=== PATIENT | female | born 1955 | race Caucasian/White ===

== ENCOUNTER 2016-11-12 04:03 | Inpatient (IN) | payer MEDICARE, OTHER ==
[2016-11-12] VITALS (17 sets, daily range): BP systolic 124–184; BP diastolic 73–114; PULSE 76–107; RESP 15–22; O2SAT 92–99
[~2016-11-12] VITALS: Ht 165.1 cm; Wt 83.3 kg
--- NOTE | 2016-11-12 04:15 | ED.REPORT ---
HPI-Hip/Pelvis Prob/Inj Date of Service Nov 12, 2016 ED Provider: Dr. Isabel Pt is a 61 year old female with a hx of bilateral hip replacements, a redo on the left, and previous hip dislocations presenting to the ED via EMS complaining of left hip pain onset just prior to arrival as she was rolling off the couch. There is no other trauma no impact trauma. She reports that she drank EtOH after she injured herself tonight. Denies fever, chills, nausea, vomiting, SOB or wheezing. Nursing Notes Stated Complaint: L HIP PAIN Chief Complaint: Extremity Trauma Nursing Notes Reviewed: Yes Allergies: Coded Allergies: No Known Allergies (Unverified , 11/12/16) General Time Seen by Provider: 04:15 Chief Complaint Hip dislocation left Hx Obtained From: Patient, EMS Arrived By: Ambulance Onset Occurred: Just prior to arrival Context of Onset: EtOH use Symptom Duration: Since onset Progression Since Onset: Constant Quality: Painful Severity: Current: Severe Severity: Maximum: Severe Recent Healthcare: No recent doctor visit, No recent hospitalization Similar Sx Previous: Yes Past Medical History Past Medical History Hx of hip dislocations Pt reports that she was in the ICU in a coma for 42 days due to sepsis in the past Past Surgical History Bilateral hip replacements Several abdominal surgeries while in the ICU Smoking History Unknown if Ever Smoker Ambulatory Status Independent Review of Systems Constitutional: Denies: Chills, Fever Musculoskeletal: Reports: Joint pain, Joint swelling Complete sys rev & neg: except as marked. Respiratory: Denies: Shortness of breath, Wheezing GI: Denies: Nausea, Vomiting Physical Exam Initial Vital Signs Vital Signs (First) Date Time Temp Pulse Resp B/P Pulse Ox O2 Delivery O2 Flow Rate FiO2 11/12/16 04:04 107 21 165/112 94 Room Air Initial VS: Reviewed Head / Eyes: Atraumatic, Normocephalic, PERRL Neck: Supple, Non-tender, Full range of motion Respiratory: Breath sounds normal, Clear to auscultation, No respiratory distress Cardiovascular: Regular rate & rhythm, Heart sounds normal, Intact distal pulses Upper Extremities: Vascular intact, Neuro intact, No swelling, No tenderness Skin: Warm, Dry, No cyanosis Neurologic: Alert, Oriented, Nonfocal Psychiatric: Mood/affect normal, Behavior normal, Normal thought content Lower Extremity / Pelvis / MS: No deformity, Neurologic intact, Vascular intact Left hip dislocation General/Constitutional: Awake, Alert Mild odor of alcohol Abdomen: Atraumatic, Soft, Non-tender Scarred ENT: Atraumatic, Airway patent, Mucous membranes moist, Pharynx NL Mallampati 1 pharynx Interpretation & Diagnostics Lab Results Interpretation Result Diagram: 11/12/16 0505 11/12/16 0505 Test 11/12/16 05:05 White Blood Count 7.3th/mm3 (3.8-10.1) Red Blood Count 4.02mil/mm3 (3.90-5.20) Hemoglobin 11.7g/dL (12.0-15.6) Hematocrit 35.2% (35.0-46.0) Mean Corpuscular Volume 87.6fL (81-100) Mean Corpuscular Hemoglobin 29.1pg (27.0-35.0) Mean Corpuscular Hemoglobin Concent 33.2% (32.0-37.0) Red Cell Distribution Width 17.0% (12.3-15.4) Platelet Count 364bil/L (150-400) Neutrophils (%) (Auto) 66.6% (40-74) Lymphocytes (%) (Auto) 22.5% (14-46) Monocytes (%) (Auto) 7.8% (4-12) Eosinophils (%) (Auto) 2.5% (0-5) Basophils (%) (Auto) 0.5% (0-3) Sodium Level 140mEq/L (134-144) Potassium Level 4.3mEq/L (3.5-5.2) Chloride Level 100mEq/L (97-108) Carbon Dioxide Level 23mmol/L (18-29) Blood Urea Nitrogen 9mg/dL (8-27) Creatinine 0.48mg/dL (0.57-1.00) Estimat Glomerular Filtration Rate 189mL/min (>59) Glucose Level 91mg/dL (60-99) Calcium Level 8.4mg/dL (8.5-10.1) Total Bilirubin 0.2mg/dL (0.0-1.2) Aspartate Amino Transf (AST/SGOT) 46U/L (0-50) Alanine Aminotransferase (ALT/SGPT) 24U/L (0-32) Alkaline Phosphatase 134U/L (25-165) Total Protein 6.6g/dL (6.4-8.4) Albumin 3.8g/dL (3.4-5.0) Alcohols 77mg/dL (0-10) X-Ray Interpretation Xray Interpretation: Dislocated left hip. XRAY POST REDUCTION: Unchanged. Dislocation not reduced. Interpretation / Wet Read by: Wet read ED physician Procedures Proced Mod Sedation/Analgesia 200 Propofol Time: :31 Procedure Performed by: ED physician Sedation Time: 10 - 15 min Consent / Setup: Informed consent provided, Time-out performed, Hand hygiene observed, Stand sterile technique, Position supine Indication: Hip reduction Preparation: court monitor applied, Pulse oximeter applied, Constant attendance, IV access established, Eval last meal time, Supplemental oxygen, Procedure explained, Suction available, End tidal CO2 mon applied VS Prior to Procedure: All vital signs normal Mallampati: Class & Anatomy: 1 tonsils/uvula/s palate Airway Exam: Normal facial anatomy CVS/Resp Exam: Normal breath sounds Neuro Exam: Alert Sedation: Sedation: Propofol ASA Classification: 1 normal healthy patient Response During Procedure: Handled secretions adeq, Maintained airway well, Oxygenation stable, Sedation appropriate, Vital signs stable Complications During/After: None Reversal: None required Mental Status After Procedure: Alert Attestation: I performed procedure, I performed sedation Reduction Post Dislocation Hip 200 total Propofol given Time: : Procedure Performed by: ED physician Consent / Timeout / Setup: Informed consent provided, Time-out performed, Oxygen administered, Pulse oximeter applied, court monitor applied, Hand hygiene observed, Stand sterile technique Procedural Sedation/Analgesia: Sedation: Propofol Which Hip and Technique: Left hip Neurovascular: Intact pre-procedure, Intact post-procedure Post-Procedure / Complications: Not reduced per exam, X-ray disloc not reduced , Condition improved, Tolerated procedure well, Patient stable Re-Eval/Medical Decision Med Decision/Clinical Course Multiple efforts to reduce this hip were unavailable. Discussed with orthopedics who will admit him to the operating room. Orientation of her left acetabular cup appears to be fairly posterior, and appears to be engaged with the inferior margin of the femoral part of the prosthesis. No significant change in position after flexion rotation and traction applied. Recovered without incident from sedation and is transported now in stable condition. Re-Evaluation/Progress #1: Time of Eval: 04:19 Patient Status: Condition improved Re-Evaluation/Progress Note: Discussed plan for dislocation reduction. Pt understands and agrees. She states that she last ate at 1500 today. Re-Evaluation/Progress #2: Time of Eval: 04:31 Patient Status: Condition improved Re-Evaluation/Progress Note: Performed hip dislocation reduction. Procedure unsucessful. Re-Evaluation/Progress #3: Time of Eval: 05:00 Patient Status: Condition improved Re-Evaluation/Progress Note: Discussed plan for admission. Pt understands and agrees with plan. Consultation #1: Referral / Consult Name: Ranulfo Rodriguez MD Consulted With: Orthopedic Call Returned at: 04:56 Note: Admit the pt to the hospitalist and she will see her in the morning. Consultation #2: Referral / Consult Name: Anand Marquez MD Consulted With: Hospitalist Call Returned at: 05:05 Curb Hop: Will see patient, Agrees with plan, Accepts admit Counseled Regarding: Diagnosis, Lab results, Need for admission Discharge & Departure Impression: Primary Impression: Recurrent dislocation, left hip Disposition: ADMITTED TO HOSPITAL Discharge Condition All VS Reviewed: Yes Condition: Improved Referrals: Ranulfo Rodriguez MD Attestation Portions of this note were transcribed by Kamryn Stoll. I, Dr. Isabel personally performed the history, physical exam and medical decision-making; I reviewed and confirmed the accuracy of the information in the transcribed note. Signed by: Freddy Gustafson, 11/12/2016. copies to: Ranulfo Rodriguez MD, Christopher W MD Nov 12, 2016 04:14 KAMRYN STOLL Nov 12, 2016 04:20
[2016-11-12] MEDS ORDERED: Propofol 10 mg/mL 20 mL Inj IVPUSH ONE (04:20)
[2016-11-12] MEDS ORDERED: fentaNYL-PF 50 mCg/mL 2 mL Inj IVPUSH ONE (04:20)
[2016-11-12] MEDS ORDERED: Lactated Ringer's 1,000 ML IV SCH ×2 (05:19→10:45)
[2016-11-12] MEDS ORDERED: fentaNYL PCA 10 mCg/mL 30 mL Inj IV PRN (05:25)
[2016-11-12 05:36] LABS: BASOPHILS % (AUTO) 0.5 % (0-3); EOSINOPHILS % (AUTO) 2.5 % (0-5); MONOCYTES % (AUTO) 7.8 % (4-12); Mean Corpuscular Hemoglobin 29.1 pg (27.0-35.0); Mean Corpuscular Volume 87.6 fL (81-100); NEUTROPHILS % (AUTO) 66.6 % (40-74); Platelet Count 364 bil/L (150-400)
[2016-11-12] MEDS ORDERED: 0.9% Sodium Chloride 1,000 ML IV SCH (07:05)
[2016-11-12] MEDS ORDERED: PANT40TA3 PO (07:37)
[2016-11-12] MEDS ORDERED: OMEG-38 PO (07:38)
[2016-11-12] MEDS ORDERED: BUSP15TA3 PO (07:47)
[2016-11-12] MEDS ORDERED: BUPR150T12 PO ×2 (07:47→07:51)
[2016-11-12] MEDS ORDERED: QUET50TA55 PO (07:52)
--- NOTE | 2016-11-12 07:52 | NUR ---
Admit to floor @ 0550 from ED. Arrived via stretcher in a great deal of pain and in tears. VSS, placed NPO for morning surgery. plan for T.F [address] Rodriguez (consulting). TEXTILE SCREEN PRINTER initiated and bolus dose given. Patient states little relief. Oncoming RN Jami consulting with morning hospitalist for improved pain control. Admit deferred to next shift. No arm band on arrival - new one printed.
[2016-11-12] MEDS ORDERED: HYDROmorphone 0.5 mg/0.5 mL iSecure Syringe IVPUSH ONE (07:55)
[2016-11-12] MEDS ORDERED: LAMO100T2 PO ×2 (07:55→08:40)
[2016-11-12] MEDS ORDERED: FENTANYL PCA IV PRN (07:55)
[2016-11-12] MEDS ORDERED: ESCI5SOL4 PO (07:56)
[2016-11-12] MEDS ORDERED: ESTR2TAB2 PO (07:57)
[2016-11-12] MEDS ORDERED: MULT-444 PO (08:00)
[2016-11-12] MEDS ORDERED: ZINC50TA4 PO (08:01)
[2016-11-12] MEDS ORDERED: ASCO500C6 PO (08:01)
[2016-11-12] MEDS ORDERED: CA/D1TAB7 PO (08:02)
[2016-11-12] MEDS ORDERED: GABA-502 PO ×2 (08:06)
[2016-11-12] MEDS ORDERED: ESCI20TA38 PO (08:09)
--- NOTE | 2016-11-12 08:30 | NUR ---
Pain Per pt pain uncontrolled with Fentanyl FASHION ILLUSTRATOR. Pt rolling around nonstop restlessness, diaphoretic and moaning r/t pain. Pt c/o cramping of dislocated leg although no tight muscles palpated. Pt continues to move around restless moaning. Fentanyl FASHION ILLUSTRATOR settings increased to opioid tolerant dose per MD. According to pt this was still not working. Small IV push dose of Dilaudid was ordered although after flushing pts IV to check for patency pt states that she was feeling better. Dilaudid IV Push dose was NOT given. Pt remains more comfortable at this time. Opioid Tolerant dose FASHION ILLUSTRATOR Fentanyl continues. Care continues
--- NOTE | 2016-11-12 08:51 | PCM.HPMED ---
Subjective Date of Service Nov 12, 2016 Primary Provider: Admitting Physician: Anand Marquez MD Primary Care Physician: Rory Attending Physician: Anand Marquez MD Chief Complaint: Left hip pain History of Present Illness: Patient with past medical history of depression, anxiety, chronic pain presented to the hospital with left hip pain. X-ray showed dislocation of her left hip. Attempt was made to reduce left hip dislocation in emergency department. It was not successful. Orthopedic surgeon was consulted. Patient is being admitted to the hospital for pain control and treatment of the dislocated hip in the OR. Patient is complaining of left hip pain. Out of 10, nonradiating, associated with some cramps, alleviated by IV opioids, exacerbated by movements. Patient is on SHOPPER with fentanyl. Review of Systems: REVIEW OF SYSTEMS: GENERAL: no malaise, no fevers., SEE HPI HEENT: Negative for frequent or significant headaches All other reviewed and negative other than HPI. Allergies Coded Allergies: No Known Allergies (Unverified , 11/12/16) PMH Social History Hx Alcohol Use: Yes (at my dad's house) Alcoholic Drinks Per Day: i am in revocery Hx Substance Use: No Hx Tobacco Use: No Smoking Status: Unknown if Ever Smoker Exam Vital Signs Vital Sign - Last Date Time Temp Pulse Resp B/P Pulse Ox O2 Delivery O2 Flow Rate FiO2 11/12/16 08:33 36.8 92 18 184/114 95 Room Air Intake and Output 11/11/16 11/11/16 11/12/16 Cumulative From/Thru 15:00 23:00 07:00 11/12/16 04:04 - 11/12/16 06:28 Intake Total 0 ml 0 ml Output Total 0 ml 0 ml Balance 0 ml 0 ml Intake Oral 0 ml 0 ml Output Urine Total 0 ml 0 ml # Bowel Movements 0 0 Exam GENERAL: Alert, moderate distress, in bed HEAD: atraumatic, normocephalic, no bruises. EYES: SUHAIL, EOMI, anicteric, able to fully open and close eyelids SKIN: Skin color normal, turgor normal. No visible rashes or lesions. EAR, NOSE, MOUTH, THROAT: Lips, oral mucosa, tongue gums, oropharynx are moist , pink, no lesions. Ears normal appearance, no lesions. NECK: no jugulovenous distention; supple ROM normal. RESPIRATORY: Lungs clear to auscultation. Good diaphragmatic excursion. CARDIAC: normal S1 and S2; no rubs, murmurs, or gallops; regular rate and rhythm ABDOMEN: Abdomen soft, non-tender. BS normal. No masses or organomegaly. MUSCULOSKELETAL: ROM limited in the left hip, muscles are not tender EXTREMITIES: no pitting edema in LE, no new deformities or skin discoloration. NEURO: Alert, oriented X 3, Sensation grossly intact., Cranial nerves II-XII intact, Grossly normal motor function. PULSES: 2+ radial, 2+ carotid Lab and Diagnostics Result Diagram: 11/12/1650411/12/16 0505 Assessment & Plan [id number] female presented to the hospital with dislocated left hip. Attempt was made in the emergency department to reduce it but was not successful. Orthopedic surgery was consulted, patient was admitted to the hospital. Dislocated left hip - IV opioids for pain control - Nothing by mouth for surgery - patient will be taking to OR today Anemia of chronic disease - Stable Depression, anxiety, chronic pain - Stable - Continue with home medication patient is able to take them Alcohol use - Monitor for now - Consider CIWA after the surgery DVT PROPHYLAXIS: Sequential compression devices Code status: Full code Labs, radiology tests reviewed. Plan of care, medication side effects, home medication, diagnostic procedures and available alternatives were discussed and reviewed with patient. All questions answered. Patient verbalized understanding, approved and agreed to plan of care. Portillo Nova MD Nov 12, 2016 08:51
--- NOTE | 2016-11-12 09:09 | DRSVH ---
PROCEDURE: X-RAY PELVIS, ONE OR TWO VIEWS ([id number]) INDICATIONS: LEFT HIP PAIN TECHNIQUE: 2 view(s) of the pelvis acquired. COMPARISON: [facility], , XR PELVIS W LATERAL HIP LT, 11/12/2016, 4:51. FINDINGS: Bones: Bilateral hip arthroplasties are present. There is superior, posterior dislocation of the left prosthetic femoral head in relation to the acetabulum. No visualized hardware or osseous fracture. Soft tissues: Visualized bowel gas pattern is normal. No suspicious soft tissue calcifications. IMPRESSION: Left hip arthroplasty dislocation without fracture as above. Dictated by: Gisela Alvarez M.D. on 11/12/2016 at 9:07 Approved by: Gisela Alvarez M.D. on 11/12/2016 at 9:08
--- NOTE | 2016-11-12 09:10 | DRSVH ---
PROCEDURE: X-RAY PELVIS W/LAT HIP (LT) ([id number]) INDICATIONS: dislocation of prosthetic hip TECHNIQUE: AP pelvis with lateral view(s) of the left hip(s). COMPARISON: [facility], , XR PELVIS 1 OR 2VW, 11/12/2016, 4:11. FINDINGS: Bones: Unchanged appearance of dislocated left hip arthroplasty. No visualized fracture. Soft tissues: The visualized bowel gas pattern is normal. No suspicious soft tissue calcifications. IMPRESSION: Unchanged appearance of left hip arthroplasty dislocation. Dictated by: Gisela Alvarez M.D. on 11/12/2016 at 9:08 Approved by: Gisela Alvarez M.D. on 11/12/2016 at 9:09
--- NOTE | 2016-11-12 09:37 | NUR ---
Too OR Pt leaves to OR via bed. IV SL.
--- NOTE | 2016-11-12 10:44 | PCM.HPANE ---
Patient Data Date of Service: Nov 12, 2016 (0945) Surgeon Admitting Provider:Anand Marquez MD Attending Provider:Anand Marquez MD Primary Care Physician:Rory Other Provider:HospitalistVamshi Team Reason for Visit Dislocated Prosthetic L Hip Ht/WT & BMI Height (Feet): 5 Height (Inches): 5.00 Weight (Kilograms): 83.300 Body Mass Index 30.60 Allergies Coded Allergies: Sulfa (Sulfonamide Antibiotics) (Verified Allergy, Mild, 11/12/16) per patient report GI upset long time ago. Past Anesthesia History Anesthesia History: Denies:: Abnormal Airway, Anesthesia Reactions, Difficult Intubation, Fam Anesthesia Reaction, Fam Malignant Hypertherm, Malignant Hyperthermia Diabetes History Hx Diabetes?: No MRSA MRSA: No Medications Home Meds Incl Beta Claudia: No Reported Medications Lamotrigine 100 Mg Tablet4.5 Tab PO HS Ref 0 11/12/16 Escitalopram Oxalate 20 Mg Jxdmli96 Mg PO DAILY 30 Days Ref 0 11/12/16 Gabapentin 300 Mg Capsule4 Capsule PO HS Ref 0 11/12/16 Gabapentin 300 Mg Capsule2 Capsule PO BID Ref 0 11/12/16 Ca/D3/Mag/Zinc/Terese/Kai/Mgbor (Caltrate 600+D3+Min Chew Tab)1 Each Tab.chew1 Each PO 11/12/16 Zinc Gluconate (Zinc)50 Mg Ynbnpl20 Mg PO 11/12/16 Ascorbic Acid (Vitamin C)500 Mg Capsule.er500 Mg PO 11/12/16 FA/Mv,Ca,Iron,Min/Lycopene/Lut (Centravites Tablet)1 Each Tablet1 Each PO 11/12/16 Estradiol 2 Mg Tablet2 Mg PO MORNING Ref 0 11/12/16 Quetiapine Fumarate 50 Mg Vzxclv95 Mg PO HS Ref 0 11/12/16 Bupropion ER 150 Mg Tablet.er3 Tab PO DAILY Ref 0 11/12/16 Buspirone 15 Mg Keyppu80 Mg PO TID Ref 0 11/12/16 Enloe-3/Dha/Epa/Fish Oil (Fish Oil 1,000 mg Softgel)1 Each Capsule1 Each PO QID 11/12/[address] 40 Mg Tablet.dr40 Mg PO BID Ref 0 11/12/16 Discontinued Reported Medications Escitalopram Oxalate 5 Mg/5 Ml Dadmvamx56 Mg PO DAILY #1 BOTTLE Ref 0 11/12/16 Lamotrigine 100 Mg Tablet4 Tab PO HS Ref 0 11/12/16 Bupropion ER 150 Mg Tablet.er150 Mg PO BID Ref 0 11/12/16 History History of ENT Problems?: No HEENT History: Denies:: Abnormal Airway Cataracts Difficult Intubation Dysphagia Glaucoma Hearing Problem Sinus Problem TMJ Denture Type: None Teeth Condition: Within Normal Limits Hx of Heart Problems?: No Cardiovascular History: Positive for:: Hypertension Denies:: AICD Abdominal Aortic Aneurism Atrial Fibrillation Cardiac Surgery Chest Pain Congestive Heart Failure Coronary Artery Disease Edema Heart Murmur Irregular Heartbeat Pacemaker Peripheral Vascular Rheumatic Fever Thrombophlebitis Valvular Heart Disease Hx of Respiratory Problem?: No Respiratory History: Denies:: Asthma COPD Chest Surgery Cough Dyspnea Emphysema Hemoptysis Oxygen Administration Pneumonia Pulmonary Embolism Tuberculosis Use of C-PAP Machine Use of Inhalers / NEBS Hx Neurologic Problems?: No Neurological History: Denies:: Alzheimer's Disease CVA Dementia Dizziness Headaches Parkinson's Disease Seizures Hx of GI Problems?: Yes Other GI Pertinent History: one bleeding ulcer 6 month ago Hx of Problems?: No Genitourinary History: Positive for:: Urinary Tract Infection Denies:: HX of Hemodialysis Kidney Stones HX of Peritoneal Dialysis: No Female Hx: Denies:: Currently Other Skin Pertinent History: on stomach skin abrasions Hx Musculoskeletal Problems?: No Musculoskeletal History: Denies:: Back Injury Joint Replacement (both replaced ) Musculoskeletal Trauma Hx of Psycho/Social Problems?: Yes Psycho Social History: Positive for:: Anxiety (couple anxiety attacks) Bipolar Disorder Hx Depression Denies:: Suicide Attempt Hx Surgeries?: Yes (Sepsis with abdominal skin removal ) Hx Any Other Health Problems?: No Other History: Positive for:: Hospitalization Denies:: Cancer Thyroid Disease History Blood Transfusions: Positive for:: Accept Blood Products? Blood Transfusions (6 monts ago) Denies:: Blood Transfuse Reaction Hx Diabetes: No Hx Alcohol Use: Yes (at my dad's house)Alcoholic Drinks Per Day: i am in revoceryHx Substance Use: No Smoking Status: Unknown if Ever Smoker Have You Smoked inLast 12 mo: No Stop/Bang Treated for Sleep Apnea?: No Do You Have a CPAP Machine?: No S-Snoring: Do You Snore Loudly: No T-Tired: feel tired, fatigued: Yes O-Obsered: Observed not breath: No P-Blood Pressure: treated: No B- Body Mass Index > 35 kg/m2: No A- Age over 50: Yes N- Neck Large Circumference: No G- Gender Male: No KONG Total Score: 1 Risk Assessment Category Category 1A: Patient has history of documented sleep apnea, and HAS NOT received any narcotic, sedative or anesthesia administration during this stay. Category 1B: Patient has history of documented sleep apnea, and HAS received any narcotic , sedative or anesthesia administration during this stay Category 2: Patient has SUSPECTED Obstructive Sleep Apnea, and HAS received any narcotic , sedative or anesthesia administration during this stay. Category 3: Patient has SUSPECTED Obstructive Sleep Apnea and HAS NOT received narcotic, sedative or anesthesia administration during this stay. Category 4: Outpatient in Procedural Areas with known sleep apnea or who screen positive for High Risk via the STOP/BANG questionnaire. Exam Exam Vital Signs Vital Signs Date Time Temp Pulse Resp B/P Pulse Ox O2 Delivery O2 Flow Rate FiO2 11/12/16 09:03 87 18 174/78 95 Room Air 11/12/16 08:33 36.8 92 18 184/114 95 Room Air 11/12/16 06:30 22 11/12/16 06:00 36.8 89 18 159/88 92 Room Air 11/12/16 05:32 36.7 99 20 131/85 99 Room Air 11/12/16 04:04 107 21 165/112 94 Room Air General Appearance: Alert, Oriented X3, Cooperative, No Acute Distress HEENT/AIRWAY: MP 2 Lungs: Clear to Auscultation Heart: Exam Unremarkable Meds/Labs/Diagnostics Admission Meds Current Medications Fentanyl Citrate (Sublimaze Inj) 200 mcg ONCE ONCE IVPUSH Last administered on 11/12/16 05:07; Start 11/12/16 at 04:20; Stop 11/12/16 at 04:21; Status DC Propofol 40 mg 40 mg ONCE ONCE IVPUSH Last administered on 11/12/16 05:07; Start 11/12/16 at 04:20; Stop 11/12/16 at 04:21; Status DC Lactated Ringer's 1,000 ml @ 100 mls/hr Q10H IV Last administered on 11/12/16 09:30; Start 11/12/16 at 05:19; Stop 11/12/16 at 07:02; Status DC Sodium Chloride (Normal Saline) 1,000 ml @ 100 mls/hr Q10H IV Last administered on 11/12/16t 07:51; Start 11/12/16 at 07:05 Labs Test 11/12/16 05:05 White Blood Count 7.3th/mm3 (3.8-10.1) Red Blood Count 4.02mil/mm3 (3.90-5.20) Hemoglobin 11.7g/dL (12.0-15.6) Hematocrit 35.2% (35.0-46.0) Mean Corpuscular Volume 87.6fL (81-100) Mean Corpuscular Hemoglobin 29.1pg (27.0-35.0) Mean Corpuscular Hemoglobin Concent 33.2% (32.0-37.0) Red Cell Distribution Width 17.0% (12.3-15.4) Platelet Count 364bil/L (150-400) Neutrophils (%) (Auto) 66.6% (40-74) Lymphocytes (%) (Auto) 22.5% (14-46) Monocytes (%) (Auto) 7.8% (4-12) Eosinophils (%) (Auto) 2.5% (0-5) Basophils (%) (Auto) 0.5% (0-3) Sodium Level 140mEq/L (134-144) Potassium Level 4.3mEq/L (3.5-5.2) Chloride Level 100mEq/L (97-108) Carbon Dioxide Level 23mmol/L (18-29) Blood Urea Nitrogen 9mg/dL (8-27) Creatinine 0.48mg/dL (0.57-1.00) Estimat Glomerular Filtration Rate 189mL/min (>59) Glucose Level 91mg/dL (60-99) Calcium Level 8.4mg/dL (8.5-10.1) Total Bilirubin 0.2mg/dL (0.0-1.2) Aspartate Amino Transf (AST/SGOT) 46U/L (0-50) Alanine Aminotransferase (ALT/SGPT) 24U/L (0-32) Alkaline Phosphatase 134U/L (25-165) Total Protein 6.6g/dL (6.4-8.4) Albumin 3.8g/dL (3.4-5.0) Alcohols 77mg/dL (0-10) Plan Impression Patient chart reviewed, patient interviewed and anesthestic plan with risks, benefits, and alternatives discussed, and informed consent obtained. ASA Physical Status: ASA3 Severe Disease Anesthetic Plan: GA Bene/Risks/Altern/Consents: Yes HP Complete Prior to Induction: Yes Nasir Lr MD Nov 12, 2016 10:44
[2016-11-12] MEDS ORDERED: Dexamethasone 4 mg/mL Inj IVPUSH PRN (10:45)
[2016-11-12] MEDS ORDERED: Lactated Ringer's 500 ML IV PRN (10:45)
[2016-11-12] MEDS ORDERED: EPHEDrine Sulfate 50 mg/mL Inj IVPUSH PRN (10:45)
[2016-11-12] MEDS ORDERED: Ondansetron 2 mg/mL 2 mL Inj IVPUSH PRN (10:45)
[2016-11-12] MEDS ORDERED: MetoCLOpramide 5 mg/mL 2 mL Inj IVPUSH PRN (10:45)
[2016-11-12] MEDS ORDERED: Phenylephrine 10,000 mCg/mL Inj IVPUSH PRN (10:45)
[2016-11-12] MEDS: fentaNYL-PF 50 mCg/mL 2 mL Inj IVPUSH PRN ×4 (11:17→11:48)
[2016-11-12] MEDS ORDERED: Polyethylene Glycol (PEG) 17 Gm Powder PO PRN (11:20)
[2016-11-12] MEDS ORDERED: Alum-Mag Hydrox-Simeth 30 mL Suspension PO PRN (11:20)
[2016-11-12] MEDS: HYDROmorphone 1 mg/mL Inj IVPUSH PRN ×2 (11:33→11:40)
--- NOTE | 2016-11-12 11:36 | PCM.ANEP1 ---
Post Anesthesia PACU Phase 1 Assessment Vital Signs Vital Signs Date Time Temp Pulse Resp B/P Pulse Ox O2 Delivery O2 Flow Rate FiO2 11/12/16 09:03 87 18 174/78 95 Room Air 11/12/16 08:33 36.8 92 18 184/114 95 Room Air 11/12/16 08:30 18 11/12/16 06:30 22 11/12/16 06:00 36.8 89 18 159/88 92 Room Air 11/12/16 05:32 36.7 99 20 131/85 99 Room Air 11/12/16 04:04 107 21 165/112 94 Room Air Anesthetic Administered: GA Level of Alertness: Awake, talking SMITH's with Equal Strength: Yes Pain: Yes (RN aware- 8 out of 10 ) Pain Scale Score: 8 Nausea or Vomiting: No CV Function & Hydration Stable: Yes Airway Device: Oxygen Delivery: Nasal Cannula Lungs: Clear to Auscultation Dermatome Level: Full Sensation PACU Phase 2 Assessment Complications: No Patient Instructions Provided: N/A Nasir Lr MD Nov 12, 2016 11:36
[2016-11-12] MEDS ORDERED: fentaNYL-PF 50 mCg/mL 2 mL Inj ONE ×2 (11:46→15:29)
[2016-11-12] MEDS ORDERED: HYDROmorphone 0.5 mg/0.5 mL iSecure Syringe IVPUSH PRN (11:55)
--- NOTE | 2016-11-12 12:31 | OP ---
[address] [address] OPERATIVE REPORT PATIENT: GREGG ECHEVERRIA : 1955 MR#: [id number] ADMIT: 11/12/2016 JOB ID: [id number] DATE OF SURGERY: 11/12/2016 SURGEON: Ranulfo Rodriguez MD QUALITY ASSURANCE LEAD: Akash Garcia PA-C PREOPERATIVE DIAGNOSIS(ES): Recurrent left total hip dislocation. POSTOPERATIVE DIAGNOSIS(ES): Recurrent left total hip dislocation. PROCEDURE: Attempted left total hip dislocation reduction. Reduction unsuccessful. Potential retroversion of the cup and/or potential soft tissue interposition. ANESTHESIA: General with muscle relaxation. ESTIMATED BLOOD LOSS: Not applicable. INDICATIONS: A 61-year-old female with recurrent left total hip dislocation. Initial procedure performed by Dr. Brumfield at [facility] in [place]. The patient underwent revision of left total hip just recently this year. She dislocated while visiting her father last night in [place]. The patient had been drinking at that time. PROCEDURE IN DETAIL: Under adequate general anesthetic with muscle relaxation, initial attempts were made to reduce the hip. In order to provide enough traction, we switched the patient to one of the fracture beds with a central post to be able to obtain enough traction. We had adequate help with retraction maneuvering and rotation and counter traction. I was able to maneuver the hip down to the level of the cup, but it kept impinging on the rim of the cup regardless of internal or external rotation. Rather than continue to manipulate the hip, I opted to abort the procedure. The patient remained neurovascularly intact. She was taken back off the fracture table and placed onto her hospital bed and taken to the recovery room. I contacted [facility] in [place]. They did contact Dr. Brumfield, and he has indicated he would accept the patient in transfer. I have called the digital coordinator and they will contact us back with information. They will probably transfer her to the emergency department there. We will arrange for copies of her x-rays and notes to be sent with the patient. The patient is aware of the transfer. cc: [facility] Orthopedics cc: Dr. Brumfield.
--- NOTE | 2016-11-12 12:42 | CONS ---
[address] [address] CONSULTATION REPORT PATIENT: GREGG ECHEVERRIA : 1955 MR#: [id number] ADMIT: 11/12/2016 JOB ID: [id number] ORTHOPEDIC CONSULTATION: DATE OF SERVICE: 11/12/2016 CHIEF COMPLAINT: A 61-year-old female who is status post a revision for dislocation for left total hip replacement by Dr. Brumfield at [facility] in [place] this past year. The patient was visiting her father last night and states that she got up from the bed and was on the couch and she stuck to the vinyl couch, twisted her leg and dislocated the hip. The ER physicians tried to reduce the hip under IV conscious sedation, but this was not able to be done and this was about five o'clock this morning. I was then contacted the patient was admitted to the hospitalist service, she was kept n.p.o. and she then planned for attempted reduction of the dislocation in the OR this morning. The patient indicates that she had a left total hip replacement approximately about seven months ago by Dr. Brumfield at [facility] in [place] and then evidently it dislocated and she needed revision. This was done some time a couple months after the revision, perhaps sometime in the spring. Dates are not totally available. The patient does have a history of alcohol abuse and states she goes to alcohol meetings daily but evidently was drinking last night at her father's last night when this occurred. She has been using a cane to ambulate. PAST MEDICAL HISTORY: Past medical history pertinent for chronic depression, anxiety, chronic pain issues with the left hip pain. The patient has had history of alcohol abuse. She was in recovery but evidently has still been intermittently drinking. Past medical history is also pertinent for history of bilateral total hip replacements and several abdominal surgeries with sepsis in the abdominal and pelvic area. ALLERGIES: Patient states no known allergies. MEDICATIONS: Patient states she is trying to get into a chronic pain management, but is not reporting that she is on any particular medication. REVIEW OF SYSTEMS: HEENT: No blurring of vision. No decreased hearing. Respiratory: No shortness of breath. Cardiovascular: No chest pain. GI: No nausea, vomiting. : No dysuria. Musculoskeletal: Pain in the left hip with obvious left total hip dislocation. PHYSICAL EXAMINATION: VITAL SIGNS: 165 cm female, 83.3 kg. Temperature is 36.8, pulse 92, respirations 18, blood pressure 184/114, pulse ox of 95. GENERAL: The patient is alert and oriented. EXTREMITIES: Left leg is shortened and internally rotated. She has a well-healed surgical scar, posterior lateral incision on the hip. Peripheral pulses are intact. Motor and sensory testing intact in the left lower extremity. X-RAYS: Show that she has a left total hip dislocation that appears to be posterolateral. This is also superior. The patient also has a non cemented right total hip that is in position. LABORATORY TESTING: Showed white count 7300, hematocrit 35.2, hemoglobin 11.7, platelet count 364,000, sodium 140, potassium 4.3, chloride 100, CO2 23, BUN 9, creatinine 0.48, calcium 8.4. Liver function tests within normal limits. Toxicology patient's alcohol level was 77 and elevated. IMPRESSION: 1. Recurrent left total hip dislocation. 2. Prior left total hip revision. PLAN: We will plan to take the patient to the operating room for attempted closed reduction of the dislocation. The patient is aware of the risk for damage to surrounding neurovascular structures, stretching on the sciatic nerve, possibly even potential for not being able to reduce the dislocation depending on scar tissue or soft tissue interposition, is also potential for fracture of the femur. Surgical consent has been signed. Will proceed with surgery this morning. I have also indicated to the patient that if I am not able to reduce the total hip dislocation that I would be contacting Dr. Brumfield or one of his associates at [facility] and that she would need to be transferred there for further definitive care. cc: [facility], Orthopedics
--- NOTE | 2016-11-12 13:40 | PCM.DIMED ---
Discharge Instructions Date of Service Nov 12, 2016 Dates of Hospitalization Nov 12, 2016 at 05:18 Discharge Diagnosis Discharge Diagnosis Dislocation of left hip(status post left hip arthroplasty) Medication Instructions Additional med instructions Patient is being transferred to another acute health care facility for further treatment/surgery. Diet Discharge Diet: Other (nothing by mouth for possible surgery) Portillo Nova MD Nov 12, 2016 13:40
--- NOTE | 2016-11-12 13:47 | PCM.DC.MED ---
Discharge Summary Date of Service Nov 12, 2016 Dates of Hospitalization Date of Hospital Admission Nov 12, 2016 at 05:18 Date of Discharge: Nov 12, 2016 Providers: Admitting Physician: Anand Marquez MD Primary Care Physician: Nopmanpreet Attending Physician: Anand Marquez MD Diagnosis at Time of Discharge Diagnosis at Time of Discharge Dislocation of left hip(status post left hip arthroplasty) Consultations Orthopedic surgery Procedures XRay, CTs & MRIs XR IMPRESSION: Unchanged appearance of left hip arthroplasty dislocation. Hospital Course Patient with past medical history of depression, anxiety, alcohol use, chronic pain presented to the hospital with left hip pain she developed after the fall. X-ray showed dislocation of her left hip. Attempt was made to reduce left hip dislocation in emergency department. It was not successful. Orthopedic surgeon was consulted. Pain was managed with Fentanyl via IT RECRUITER and later with IV Dilaudid prn. While in the hospital another attempt was made to reduce left hip dislocation by orthopedic surgeon in our which also was not successful. Orthopedic surgery recommendation patient was transferred to [facility] for further treatment/surgery. Plan of care and discharge was discussed with Ortho surgeon Dr. Rodriguez Physical exam: patient was seen and examined on the day of discharge Patient Condition @ Discharge: fair Discharge Disposition: [facility] During discharge patient was allert, oriented, able to make own informed decisions. We discussed plan of care and discharge. Patient verbalized understanding and agreed to current plan of care and discharge. TIME SPENT IN DISCHARGE ACTIVITY: Face to face activity greater then 30 minutes spent in discharge activity. 1. Discussed with patient re: discharge plan of care/treatment, and follow up care/services. 2. Patient agreed with discharge plan and further plan of care, all questions were answered/addressed, no further questions at the time of discharge. Exam Vital Signs (Last) Date Time Temp Pulse Resp B/P Pulse Ox O2 Delivery O2 Flow Rate FiO2 11/12/16 12:09 36.8 91 18 141/102 99 Nasal Cannula 3.00 Test 11/12/16 05:05 White Blood Count 7.3th/mm3 (3.8-10.1) Red Blood Count 4.02mil/mm3 (3.90-5.20) Hemoglobin 11.7g/dL (12.0-15.6) Hematocrit 35.2% (35.0-46.0) Mean Corpuscular Volume 87.6fL (81-100) Mean Corpuscular Hemoglobin 29.1pg (27.0-35.0) Mean Corpuscular Hemoglobin Concent 33.2% (32.0-37.0) Red Cell Distribution Width 17.0% (12.3-15.4) Platelet Count 364bil/L (150-400) Neutrophils (%) (Auto) 66.6% (40-74) Lymphocytes (%) (Auto) 22.5% (14-46) Monocytes (%) (Auto) 7.8% (4-12) Eosinophils (%) (Auto) 2.5% (0-5) Basophils (%) (Auto) 0.5% (0-3) Sodium Level 140mEq/L (134-144) Potassium Level 4.3mEq/L (3.5-5.2) Chloride Level 100mEq/L (97-108) Carbon Dioxide Level 23mmol/L (18-29) Blood Urea Nitrogen 9mg/dL (8-27) Creatinine 0.48mg/dL (0.57-1.00) Estimat Glomerular Filtration Rate 189mL/min (>59) Glucose Level 91mg/dL (60-99) Calcium Level 8.4mg/dL (8.5-10.1) Total Bilirubin 0.2mg/dL (0.0-1.2) Aspartate Amino Transf (AST/SGOT) 46U/L (0-50) Alanine Aminotransferase (ALT/SGPT) 24U/L (0-32) Alkaline Phosphatase 134U/L (25-165) Total Protein 6.6g/dL (6.4-8.4) Albumin 3.8g/dL (3.4-5.0) Alcohols 77mg/dL (0-10) Discharge Medications Discharge Medications Bupropion ER (Bupropion ER) 150 Mg Tablet.er 3 TAB PO DAILY (Reported) Buspirone (Buspirone) 15 Mg Tablet 15 MG PO TID (Reported) Escitalopram Oxalate (Escitalopram Oxalate) 20 Mg Tablet 20 MG PO DAILY ( Reported) Estradiol (Estradiol) 2 Mg Tablet 2 MG PO MORNING (Reported) Gabapentin (Gabapentin) 300 Mg Capsule 2 CAPSULE PO BID (Reported) Gabapentin (Gabapentin) 300 Mg Capsule 4 CAPSULE PO HS (Reported) Lamotrigine (Lamotrigine) 100 Mg Tablet 4.5 TAB PO HS (Reported) [place]-3/Dha/Epa/Fish Oil (Fish Oil 1,000 mg Softgel) 1 Each Capsule 1 EACH PO QID (Reported) Pantoprazole DR (Pantoprazole DR) 40 Mg Tablet.dr 40 MG PO BID (Reported) Quetiapine Fumarate (Quetiapine Fumarate) 50 Mg Tablet 50 MG PO HS (Reported) Miscellaneous Medications Ascorbic Acid (Vitamin C) 500 Mg Capsule.er 500 MG PO (Reported) Ca/D3/Mag/Zinc/Terese/Kai/Mgbor (Caltrate 600+D3+Min Chew Tab) 1 Each Tab.chew 1 EACH PO (Reported) FA/Mv,Ca,Iron,Min/Lycopene/Lut (Centravites Tablet) 1 Each Tablet 1 EACH PO ( Reported) Zinc Gluconate (Zinc) 50 Mg Tablet 50 MG PO (Reported) Additional med instructions Patient is being transferred to another acute health care facility for further treatment/surgery. Followup Plan Discharge Diet: Other (nothing by mouth for possible surgery) Portillo Nova MD Nov 12, 2016 13:47 Discharge Medications Discharge Medications Bupropion ER (Bupropion ER) 150 Mg Tablet.er 3 TAB PO DAILY (Reported) Buspirone (Buspirone) 15 Mg Tablet 15 MG PO TID (Reported) Escitalopram Oxalate (Escitalopram Oxalate) 20 Mg Tablet 20 MG PO DAILY ( Reported) Estradiol (Estradiol) 2 Mg Tablet 2 MG PO MORNING (Reported) Gabapentin (Gabapentin) 300 Mg Capsule 2 CAPSULE PO BID (Reported) Gabapentin (Gabapentin) 300 Mg Capsule 4 CAPSULE PO HS (Reported) Lamotrigine (Lamotrigine) 100 Mg Tablet 4.5 TAB PO HS (Reported) [place]-3/Dha/Epa/Fish Oil (Fish Oil 1,000 mg Softgel) 1 Each Capsule 1 EACH PO QID (Reported) Pantoprazole DR (Pantoprazole DR) 40 Mg Tablet.dr 40 MG PO BID (Reported) Quetiapine Fumarate (Quetiapine Fumarate) 50 Mg Tablet 50 MG PO HS (Reported) Miscellaneous Medications Ascorbic Acid (Vitamin C) 500 Mg Capsule.er 500 MG PO (Reported) Ca/D3/Mag/Zinc/Terese/Kai/Mgbor (Caltrate 600+D3+Min Chew Tab) 1 Each Tab.chew 1 EACH PO (Reported) FA/Mv,Ca,Iron,Min/Lycopene/Lut (Centravites Tablet) 1 Each Tablet 1 EACH PO ( Reported) Zinc Gluconate (Zinc) 50 Mg Tablet 50 MG PO (Reported) Additional med instructions Patient is being transferred to another acute health care facility for further treatment/surgery. Followup Plan Discharge Diet: Other (nothing by mouth for possible surgery) Portillo Nova MD Nov 12, 2016 13:47
[2016-11-12] MEDS ORDERED: HYDROmorphone 1 mg/mL Inj IM ONE (15:15)
--- NOTE | 2016-11-12 15:25 | NUR ---
[facility] signed
[2016-11-12] MEDS ORDERED: Glycopyrrolate 0.2 MG/ML 1mL Inj ONE (15:29)
[2016-11-12] MEDS ORDERED: MetoCLOpramide 5 mg/mL 2 mL Inj ONE (15:29)
[2016-11-12] MEDS ORDERED: Propofol 10,000 mCg/mL 20 mL Inj ONE (15:29)
[2016-11-12] MEDS ORDERED: Phenylephrine/NS 100 mCg/mL 10 mL Syringe IVPUSH ONE (15:29)
[2016-11-12] MEDS ORDERED: Rocuronium 10 mg/mL 5 mL Inj ONE (15:29)
[2016-11-12] MEDS ORDERED: Succinylcholine Chloride 20 mg/mL 5 mL Inj ONE (15:29)
[2016-11-12] MEDS ORDERED: Ondansetron 2 mg/mL 2 mL Inj ONE (15:29)
[2016-11-12] MEDS ORDERED: Neostigmine 1 mg/mL 10 mL Inj ONE (15:29)
--- NOTE | 2016-11-12 15:42 | NUR ---
DC BLS Transport Pt leaves via BLS transport. Pain medicated with 1mg Dilaudid IV just prior to moving. IV SL but left in place in Right AC. A&OX4. Denies CP, SOB, Nausea. Pain 9/10 at all times per pt. Left hip remains dislocated. RA. Report phoned into [facility] [phone]. Care discontinues.
== END 2016-11-12 15:30 | disposition short-term general hospital (02) | DRG 561 ==
LOC: SED 04:03 → OSC 05:18 → OBSVTOIN 05:18
PROVIDERS: ADMIT Hospitalist; ATTEND Hospitalist
PROC: 0SWBXJZ Revision of Synthetic Substitute in Left Hip Joint, External Approach (ICD-10-PCS; principal; 2016-11-12 10:30)
DX: T84.021A Dislocation of internal left hip prosthesis, initial encounter (principal); Z96.643 Presence of artificial hip joint, bilateral; F41.8 Other specified anxiety disorders; Z72.89 Other problems related to lifestyle